=== PATIENT | female | born 1950 | race Caucasian/White ===

== ENCOUNTER → 2020-10-08 | Outpatient (CLI) | payer OTHER ==
[~2020-10-08] MED LIST: ATIVAN1 MG PO; CARAFATE1 GM/10 ML PO; CARVEDILOL6.25 MG PO; CLARITIN10 MG PO; DIFLUCAN150 MG PO; DIOVAN 80 MG TA80 M1 PO; HUMALOG100 UNIT/1 SQ; KEFLEX500 MG PO; LEVEMIR SUBQ; PRILOSEC 20 MG20 MG PO
== END ==
LOC: RAD 13:10
PROVIDERS: ATTEND Internal Medicine
DX: R06.00 Dyspnea, unspecified (principal)

== ENCOUNTER → 2020-10-20 | Outpatient (CLI) | payer OTHER | LOC: CAT 11:35 | PROVIDERS: ATTEND Internal Medicine | DX: R91.8 Other nonspecific abnormal finding of lung field (principal) ==

== ENCOUNTER → 2020-10-23 | Outpatient (CLI) | payer OTHER | LOC: LAB 07:55 | PROVIDERS: ATTEND Internal Medicine | DX: Z01.812 Encounter for preprocedural laboratory examination (principal); Z20.822 Contact with and (suspected) exposure to COVID-19 ==

== ENCOUNTER → 2020-10-28 | Outpatient (CLI) | payer OTHER ==
--- NOTE | 2020-11-01 21:46 | SLE ---
[facility] [place] [address] POLYSOMNOGRAPHY STUDY Name: KOKO PACHECO Room #: REG [facility]#: [id number] Admission: 10/28/20 Attend Phys: Bravo Armendariz MD Discharge: Date of : 50 Report #: [id number] THIS REPORT FOR: cc: Renee Mensah Jolie Rae DO Khan, Aman U. MD ~ DATE OF SERVICE: 10/28/2020 SLEEP STUDY ATTENDING PHYSICIAN: Dr. Thee Avilez. The patient is a 70-year-old who weighs 302 pounds with a BMI of 51.8. The patient's [place] score was 7. The patient had a previous sleep study last year and was found to have severe TONI at an AHI of 45 per hour. The patient was prescribed CPAP at 14 cm water with 1 liter of supplemental oxygen. The patient had complained of claustrophobia and preferred to use only nasal pillows. She was referred for another CPAP/BiPAP titration study. The patient arrived to the sleep lab using 3 liters of supplemental oxygen. The study was performed while on supplemental oxygen. During the night study, the patient spent 377 minutes in bed and slept for 133 minutes with a poor sleep efficiency of 35%. Sleep latency was 3.8 minutes with an absent REM sleep. Sleep architecture showed significantly increased stage 1 sleep, which was 58% of total sleep time, normal N2 sleep, absent slow wave and absent REM sleep. The patient was started on BiPAP at a pressure of 8/4 and titrated up to 12/6. However, the patient could not tolerate sleeping with BiPAP on. At this pressure, the patient slept for 13 minutes and AHI was 18.5 per hour. The patient's oxygen saturations remained in the high 80s to low 90s. The rest of the study was continued while on supplemental oxygen. Optimum BiPAP pressure was not achieved due to the patient's intolerance to nasal pillows. The patient was given an option of full face mask, but she could not tolerate that either. Patient also appeared to have a panic attack while on BIPAP. EKG monitoring revealed an average heart rate of 74 beats per minute. No sustained arrhythmias observed. PLMS were seen at an index of 22 per hour and 7 per hour caused EEG arousals. IMPRESSION: 1. Severe sleep apnea diagnosed by previous sleep study in 2019. The patient's AHI at that time was 45 per hour. 2. Nocturnal hypoxia, likely a combination of sleep apnea and [facility] [address] [place] [address] POLYSOMNOGRAPHY STUDY Name: KOKO PACHECO Room #: REG [facility]#: [id number] Admission: 10/28/20 Attend Phys: Bravo Armendariz MD Discharge: Date of : 50 Report #: [id number] obesity-hypoventilation syndrome. 3. Moderate periodic limb movements. 4. 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 RECOMMENDATIONS: 1. Optimum BiPAP pressure was not achieved on this night of the study due to the patient's intolerance to full face mask as well as nasal pillows. At a BiPAP pressure of 12/6, patient slept for only 13 minutes and AHI was still 18.5 per hour. The patient had a very poor sleep efficiency of 35%, which also contributed to poor titration night. 2. The patient can be desensitized to the effect of positive pressure therapy. If the patient is willing to try BiPAP in future, then she could be placed on an auto BiPAP with a maximum IPAP of 20 and a minimum EPAP of 10 with pressure support of 4 along with her supplemental oxygen at 1 liter. 3. The patient could be followed up after that with a download data in next 30 days to assess for compliance and effectiveness of BIPAp therapy. 4. Weight loss is strongly advised. 5. Avoid [employer] depressants. 6. Cautioned regarding driving until the patient's sleep apnea resolve with the above recommendation. 7. The PLMS does not need to be treated unless the patient has symptoms of restless legs during the day. 8. If patients insomnia is chronic, it should be evaluated and treated according to the etiology. <ELECTRONICALLY SIGNED> By: Bravo Armendariz MD 11/01/20 [id number] Bravo Armendariz MD /nt
== END ==
LOC: SLEEPLAB 07:55
PROVIDERS: ATTEND Internal Medicine Critical Care Medicine
DX: G47.30 Sleep apnea, unspecified (principal); R09.02 Hypoxemia

== ENCOUNTER → 2020-10-29 | Outpatient (CLI) | payer OTHER | LOC: RAD 06:37 | PROVIDERS: ATTEND Internal Medicine | DX: I27.20 Pulmonary hypertension, unspecified (principal) ==